=== PATIENT | female | born 2000 | race Caucasian/White ===

== ENCOUNTER 2020-02-29 09:02 | Day surgery (SDC) | payer BC ==
[~2020-02-29] VITALS: Ht 160 cm; Wt 104.0 kg
[~2020-02-29 09:02] MED LIST: IBUP-1902 PO; TRAZ50TA66 PO
[2020-02-29 09:28] VITALS: BP 123/85
[2020-02-29] MEDS ORDERED: CHLORHEXIDINE 15 ML UDC ONE (09:34)
[2020-02-29] MEDS ORDERED: LACTATED RINGERS 1,000 ML IV SCH (09:55)
[2020-02-29] MEDS ORDERED: CHLORHEXIDINE 15 ML UDC MM STA (09:56)
[2020-02-29 10:14] LABS: HCG UR SG 1.023 (1.003-1.030)
[2020-02-29] MEDS ORDERED: PROPOFOL 50 ML ONE (10:55)
[2020-02-29] MEDS ORDERED: ONDANSETRON 2MG/ML, 2ML IVPush PRN (11:00)
[2020-02-29] MEDS ORDERED: PROMETHAZINE 25 MG SUPP PR PRN (11:00)
[2020-02-29] MEDS ORDERED: ACETAMINOPHEN 325 MG TABLET PO PRN (11:00)
[2020-02-29] MEDS ORDERED: DIAZEPAM 5 MG/ML, 2ML IVPush PRN (11:00)
[2020-02-29] MEDS ORDERED: OXYcodone 5 MG/5 ML ORAL.SOL UDC PO PRN (11:00)
[2020-02-29] MEDS ORDERED: PROMETHAZINE 25 MG/ML, 1ML IVPush PRN (11:00)
[2020-02-29] MEDS ORDERED: LORazepam 2 MG/ML, 1ML IVPush PRN (11:00)
[2020-02-29] MEDS ORDERED: FENTANYL PF 100 MCG/2ML IV PRN (11:00)
== END 2020-02-29 12:10 | disposition home or self-care (01) ==
LOC: OUT 09:02
PROVIDERS: ATTEND Internal Medicine
DX: K86.89 Other specified diseases of pancreas (principal); Z11.59 Encounter for screening for other viral diseases; Z79.899 Other long term (current) drug therapy
CPT/HCPCS: 36415; 43259; 81025; 87635; J2704; J7120